=== PATIENT | female | born 1965 | race Caucasian/White ===

== ENCOUNTER → 2018-04-12 | Outpatient (CLI) | payer OTHER | LOC: MAMMO 09:47 | DX: Z12.31 Encounter for screening mammogram for malignant neoplasm of breast (principal) ==

== ENCOUNTER → 2020-03-14 | Outpatient (CLI) | payer OTHER | LOC: LAB 19:00 | DX: Z20.828 Contact with and (suspected) exposure to other viral communicable diseases (principal) ==

== ENCOUNTER → 2020-07-01 | Outpatient (CLI) | payer OTHER | LOC: LAB 01:44 → EDSTATUS 09:05 | DX: Z20.828 Contact with and (suspected) exposure to other viral communicable diseases (principal) ==

== ENCOUNTER → 2021-09-28 | Outpatient (CLI) | payer OTHER ==
[2021-09-28 09:11] LABS: POTASSIUM 3.9 mmol/L (3.5-5.1)
[2021-09-28 09:14] LABS: TOTAL PROTEIN 6.4 g/dL (6.4-8.3)
[2021-09-28 09:16] LABS: TOTAL BILIRUBIN 0.5 mg/dL (0.2-1.2)
[2021-09-28 09:21] LABS: MAGNESIUM 1.89 mg/dL (1.60-2.60)
[2021-09-28 09:31] LABS: CALCIUM 9.2 mg/dL (8.3-10.5)
== END ==
LOC: VAS 08:16 → LAB 08:16 → RAD 08:30
PROVIDERS: Internal Medicine Adult Congenital Heart Disease
DX: R07.9 Chest pain, unspecified (principal)

== ENCOUNTER → 2021-12-02 | Outpatient (CLI) | payer OTHER | LOC: RAD 14:46 | DX: S62.617A Displaced fracture of proximal phalanx of left little finger, initial encounter for closed fracture (principal); X58.XXXA Exposure to other specified factors, initial encounter ==

== ENCOUNTER → 2024-03-26 | Outpatient (CLI) | payer BC ==
[2024-03-27 01:11] LABS: ALBUMIN 4.4 g/dL (3.5-5.0); CALCIUM 9.4 mg/dL (8.3-10.5); TOTAL BILIRUBIN 0.4 mg/dL (0.2-1.2); TOTAL PROTEIN 6.8 g/dL (6.4-8.3)
[2024-03-27 01:12] LABS: BASO # 0.01 K/mm3 (0.02-0.10); EOS # 0.11 K/mm3 (0.04-0.40); EOS % 1.6 % (1.0-5.0); HEMATOCRIT 40.8 % (37.0-47.0); LYMPH# 2.68 K/mm3 (1.50-4.00); MEAN CELL VOLUME 92 fl (78-100); MEAN CORPUSCULAR HEMOGLOBIN 29 pg (27-31); MEAN CORPUSCULAR HGB CONC 32 g/dL (33-37); MEAN PLATELET VOLUME 11.6 fl (7.4-10.4); MONO # 0.66 K/mm3 (0.20-0.80); NEU # 3.45 K/mm3 (1.40-6.50); PLATELET COUNT 208 K/mm3 (130-400); RED BLOOD COUNT 4.43 M/mm3 (4.10-5.30); RED CELL DISTRIBUTION WIDTH 12.9 % (11.5-14.5); WHITE BLOOD COUNT 6.9 K/mm3 (4.8-10.8)
== END ==
LOC: LAB 23:33
PROVIDERS: Physician Assistant
DX: Z13.1 Encounter for screening for diabetes mellitus (principal); E78.5 Hyperlipidemia, unspecified

== ENCOUNTER → 2024-11-26 | Outpatient (CLI) | payer BC | LOC: LAB 11-25 20:00 | DX: Z77.011 Contact with and (suspected) exposure to lead (principal) ==